=== PATIENT | female | born 1960 | race Caucasian/White ===

== ENCOUNTER 2019-07-14 12:40 | Emergency (ER) | payer OTHER, SELFPAY ==
--- NOTE | 2019-07-14 12:48 | ED.EYEPROB ---
HPI - Eye Problem General Chief complaint: Eye Problems Stated complaint: left eye Time Seen by Provider: 07/14/19 12:48 Source: patient and RN notes reviewed History of Present Illness HPI Narrative: Patient is a 59-year-old female that presents the urgent care with complaints of left eye itchiness, redness and matting. Patient states that it started 1 week ago it was matted shut this morning. Patient states that she was using Visine and was advised to stop. Patient does not wear contacts but does wear glasses daily. Denies of any known trauma or injury to the left eye. No other acute complaints. Denies any other upper respiratory symptoms. Denies any known exposure to coronavirus or recent travel. No acute distress noted. Patient read the plan of care. Related Data Home Medications Medication Instructions Recorded Confirmed baclofen 10 mg PO DAILY 07/14/19 07/14/19 dapagliflozin-metformin [Xigduo XR] 1 tablet PO DAILY 07/14/19 07/14/19 irbesartan-hydrochlorothiazide 1 tablet PO DAILY 07/14/19 07/14/19 trazodone 100 mg PO HS 07/14/19 07/14/19 Allergies Allergy/AdvReac Type Severity Reaction Status Date / Time codeine Allergy Mild n/v Verified 07/14/19 13:06 Review of Systems Review of Systems: Narrative: CONSTITUTIONAL: Denies fever, chills, or sweats. EYES: Reports of eye redness, itchiness and matting to the left ENT: Denies rhinorrhea, congestion, sore throat, or otalgia. CARDIOVASCULAR: Denies chest pain, palpitations, or edema. RESPIRATORY: Denies cough or dyspnea. GASTROINTESTINAL: Denies abdominal pain, nausea, vomiting, or diarrhea. GENITOURINARY: Denies dysuria or hematuria. SKIN: Denies rash or itching. MUSCULOSKELETAL: Denies back pain, joint pain, or myalgia. NEUROLOGIC: Denies headache, numbness, or weakness. All other systems reviewed are negative, except as documented in HPI. [facility] Comments At the time of my signature, I reviewed and agree with the nursing past medical, surgical, social, and family history. There is no relevant family history pertinent to the patient complaint. Exam Narrative: Exam Narrative: GENERAL: This is a well-nourished, well-developed patient, in no apparent distress. HEAD: normocephalic, atraumatic. EYES: PERRL. Sclera clear/white. Vision is grossly intact. Mild to moderate left conjunctiva injection with clear drainage. EARS: External ears normal NOSE: External nose normal with no obvious nasal discharge THROAT: Mucous membranes moist NECK: Neck supple CARDIOVASCULAR: Regular rate and rhythm without murmurs, gallops, or rubs. RESPIRATORY: Clear to auscultation. Breath sounds equal bilaterally. No wheezes, rales, or rhonchi. SKIN: warm, intact with no suspicious lesions or rash, good texture and turgor. NEURO: awake, alert, and oriented to person, place and time. There were no obvious focal neurologic abnormalities. EXTREMITIES: No clubbing, cyanosis, or edema. Course Vital Signs Vital signs: Vital Signs Temperature 97.3 F L 07/14/19 12:51 Pulse Rate 82 07/14/19 12:51 Respiratory Rate 20 07/14/19 12:51 Blood Pressure 154/80 H 07/14/19 12:51 Pulse Oximetry 97 07/14/19 12:51 Temperature 97.3 F L 07/14/19 12:51 Pulse Rate 82 07/14/19 12:51 Respiratory Rate 20 07/14/19 12:51 Blood Pressure 154/80 H 07/14/19 12:51 Pulse Oximetry 97 07/14/19 12:51 Reviewed?patient is informed that they may have pre-hypertension or hypertension based on a blood pressure reading in the department. I recommend the patient call the primary care provider listed on their discharge instructions or a physician of their choice this week to arrange follow-up for further evaluation of possible pre-hypertension or hypertension. MDM - Eye Problem MDM Narrative Medical decision making narrative: Advised the patient to use warm compress to the eye. May use Claritin/Zyrtec/Benadryl if necessary for itching. Do not take multiples, choose 1. Make sure to use a new wash r
[2019-07-14 12:51] VITALS: BP 154/80; PULSE 82; RESP 20; TEMP 36.3; O2SAT 97
== END 2019-07-14 13:07 | disposition home or self-care (01) ==
PROVIDERS: Emergency Provider Nurse Practitioner Family
DX: H10.9 Unspecified conjunctivitis (principal); I10 Essential (primary) hypertension; E11.9 Type 2 diabetes mellitus without complications
CPT/HCPCS: 99213; G0463

== ENCOUNTER 2021-01-03 12:49 | Emergency (ER) | payer OTHER, SELFPAY ==
--- NOTE | ~2021-01-03 | XR_ITS ---
EXAMINATION: XR chest 2V EXAM DATE: 01/03/2021 13:15 INDICATION: Cough and fever. TECHNIQUE: Frontal and lateral projections of the chest obtained and reviewed. There is no prior lul dy for comparison. FINDINGS: There is indeterminate subcentimeter left lower lung zone nodular density, could be develo [place] or intraparenchymal nodule. No confluent consolidation, pneumothorax or pleural effusion suspected. Cardiomediastinal silhouette is normal. Mild thoracic spondylosis. IMPRESSION: Indeterminate left midlung zone nodular density; follow-up nonemergent chest CT without contrast. Reviewed, dictated and finalized at location A. IMPRESSION: Indeterminate left midlung zone nodular density; follow-up nonemer gent chest CT without contrast.
--- NOTE | 2021-01-03 12:50 | ED.URI ---
HPI - URI/Sore Throat General Chief Complaint: Upper Respiratory Infection Stated Complaint: sore throat cough chills fever Time Seen by Provider: 01/03/21 12:50 Source: patient and RN notes reviewed History of Present Illness HPI Narrative: Patient is 60-year-old female who presents the urgent care with complaints of sore throat, cough, chills, fever since Thursday. Patient states that she has been vaccinated for Covid and denies of any contact with Covid. Currently denies of any shortness of breath or chest pain. States that she has been taking DayQuil and Tylenol for her symptoms. Patient has not been tested for Covid. No other acute complaints. No acute distress noted. Patient aware of the plan of care. Some parts of this dictation were generated by voice recognition software and may contain typographical and/or grammatical inaccuracies. Related Data Home Medications Medication Instructions Recorded Confirmed baclofen 10 mg PO DAILY 07/14/19 01/03/21 dapagliflozin-metformin [Xigduo XR] 1 tablet PO DAILY 07/14/19 01/03/21 irbesartan-hydrochlorothiazide 1 tablet PO DAILY 07/14/19 01/03/21 trazodone 100 mg PO HS 07/14/19 01/03/21 cholecalciferol (vitamin D3) 50 mcg PO DAILY 01/03/21 01/03/21 nyfyzgrethlz-nqm-kabt-FA-vit K 1 tablet PO DAILY 01/03/21 01/03/21 [Adults Multivitamin] Allergies Allergy/AdvReac Type Severity Reaction Status Date / Time codeine Allergy Mild n/v Verified 01/03/21 13:10 Review of Systems Review of Systems: CONSTITUTIONAL: Reports of chills and fever EYES: Denies visual changes, redness, or discharge. ENT: Reports of sore throat, congestion CARDIOVASCULAR: Denies chest pain, palpitations, or edema. RESPIRATORY: Reports of cough without intermittent dyspnea GASTROINTESTINAL: Denies abdominal pain, nausea, vomiting, or diarrhea. GENITOURINARY: Denies dysuria or hematuria. SKIN: Denies rash or itching. MUSCULOSKELETAL: Denies back pain, joint pain, or myalgia. NEUROLOGIC: Denies headache, numbness, or weakness. All other systems reviewed are negative, except as documented in HPI. [facility] Comments At the time of my signature, I reviewed and agree with the nursing past medical, surgical, social, and family history. There is no relevant family history pertinent to the patient complaint. Exam Narrative: GENERAL: This is a well-nourished, well-developed patient, in no apparent distress. HEAD: normocephalic, atraumatic. EYES: PERRL. Sclera clear/white. Vision is grossly intact. EARS: External ears normal, auditory canals clear and without drainage, TMs normal without perforation. Hearing grossly intact. NOSE: External nose normal with no obvious nasal discharge, nares without redness, no rhinorrhea. THROAT: Mucous membranes moist, posterior pharynx clear. Mild postnasal drainage NECK: Neck supple CARDIOVASCULAR: Regular rate and rhythm without murmurs, gallops, or rubs. RESPIRATORY: Clear to auscultation. Slightly diminished left lower SKIN: warm, intact with no suspicious lesions or rash, good texture and turgor. NEURO: awake, alert, and oriented to person, place and time. There were no obvious focal neurologic abnormalities. EXTREMITIES: No clubbing, cyanosis, or edema. Course Vital Signs Vital signs: Vital Signs Temperature 101 F H 01/03/21 12:52 Pulse Rate 100 01/03/21 12:52 Respiratory Rate 20 01/03/21 12:52 Blood Pressure 133/84 01/03/21 12:52 Pulse Oximetry 96 01/03/21 12:52 Temperature 101 F H 01/03/21 12:52 Pulse Rate 100 01/03/21 12:52 Respiratory Rate 20 01/03/21 12:52 Blood Pressure 133/84 01/03/21 12:52 Pulse Oximetry 96 01/03/21 12:52 Reviewed MDM - URI/Sore Throat MDM Narrative Medical decision making narrative: Reviewed lab results with the patient. She is aware that rapid Covid swab was positive. Patient needs to remain quarantine for at least 10 days after symptom onset or longer if fever persists. Just because you have been vaccinat
[2021-01-03 12:52] VITALS: BP 133/84; PULSE 100; RESP 20; TEMP 38.3; O2SAT 96
== END 2021-01-03 13:30 | disposition home or self-care (01) ==
PROVIDERS: Emergency Provider Nurse Practitioner Family
DX: U07.1 COVID-19 (principal); R91.8 Other nonspecific abnormal finding of lung field; I10 Essential (primary) hypertension; E11.9 Type 2 diabetes mellitus without complications; Z90.711 Acquired absence of uterus with remaining cervical stump
CPT/HCPCS: 71046; 87426; 99213; C9803; G0463